=== PATIENT | female | born 1945 ===

== ENCOUNTER 2016-12-06 15:10 | Emergency (ER) | payer MEDICARE ==
[2016-12-06 15:38] VITALS: BP 180/90
== END 2016-12-06 16:30 | disposition left against medical advice (07) ==
LOC: UCCORT 15:10
DX: S41.152A Open bite of left upper arm, initial encounter (principal); W55.01XA Bitten by cat, initial encounter; Y93.9 Activity, unspecified; Y92.9 Unspecified place or not applicable; Z53.21 Procedure and treatment not carried out due to patient leaving prior to being seen by health care provider